=== PATIENT | male | born 1975 ===

== ENCOUNTER 2021-01-31 15:09 | Emergency (ER) | payer BC ==
[2021-01-31] MEDS ORDERED: Lidocaine 1% 30 ML SDV INJECT ONE (15:35)
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
[2021-01-31] MEDS ORDERED: Bacitracin Oint 1 GM U/D Packet TOP ONE (16:53)
== END 2021-01-31 17:08 | disposition home or self-care (01) ==
LOC: DL.ED 15:09
DX: S61.227A Laceration with foreign body of left little finger without damage to nail, initial encounter (principal); Z88.1 Allergy status to other antibiotic agents; Z88.8 Allergy status to other drugs, medicaments and biological substances; W22.09XA Striking against other stationary object, initial encounter; Y99.0 Civilian activity done for income or pay
CPT/HCPCS: 12001; 73130-LT; 99283-25

== ENCOUNTER 2021-02-08 11:01 | Emergency (ER) | payer SELFPAY ==
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
== END 2021-02-08 13:12 | disposition home or self-care (01) ==
LOC: DL.ED 11:01
DX: S00.81XA Abrasion of other part of head, initial encounter (principal); S80.01XA Contusion of right knee, initial encounter; S50.12XA Contusion of left forearm, initial encounter; Z88.1 Allergy status to other antibiotic agents; Z88.8 Allergy status to other drugs, medicaments and biological substances; V89.2XXA Person injured in unspecified motor-vehicle accident, traffic, initial encounter; Y92.410 Unspecified street and highway as the place of occurrence of the external cause
CPT/HCPCS: 70450; 71046; 99284-25

== ENCOUNTER 2023-04-13 05:30 | Day surgery (SDC) | payer MEDICAID ==
[~2023-04-13 05:30] MED LIST: Dextrose 5%-0.45% NaCl 1,000 ML IV SCH
[2023-04-13] MEDS ORDERED: fentaNYL 100 MCG/2 ML SDV IV ONE ×4 (06:12→06:32)
[2023-04-13] MEDS ORDERED: Midazolam 1 MG/ML 2 ML SDV IV ONE ×7 (06:12→06:28)
[2023-04-13] MEDS ORDERED: fentaNYL 100 MCG/2 ML SDV ONE (06:12)
[2023-04-13] MEDS ORDERED: Midazolam 1 MG/ML 2 ML SDV ONE (06:12)
== END 2023-04-13 08:10 | disposition home or self-care (01) ==
LOC: DL.ENDO 05:30
PROVIDERS: ATTEND Internal Medicine Gastroenterology
DX: Z12.11 Encounter for screening for malignant neoplasm of colon (principal); D12.0 Benign neoplasm of cecum; D12.2 Benign neoplasm of ascending colon; D12.4 Benign neoplasm of descending colon; K64.8 Other hemorrhoids; J45.909 Unspecified asthma, uncomplicated; E78.2 Mixed hyperlipidemia; E66.9 Obesity, unspecified; Z68.41 Body mass index [BMI] 40.0-44.9, adult; F17.210 Nicotine dependence, cigarettes, uncomplicated
CPT/HCPCS: J2250; J3010; J7042